=== PATIENT | male | born 1965 | race Caucasian/White ===

== ENCOUNTER 2024-01-18 04:31 | Emergency (ER) | payer OTHER ==
[~2024-01-18] VITALS: Ht 180.3 cm; Wt 113.4 kg
[2024-01-18] MEDS: CEFTRIAXONE 1G VIAL IVPB ONE (04:51)
[2024-01-18] MEDS: DEXAMETHASONE SOD PHOSPHATE 4 MG/ML 1ML VIAL IVP ONE (04:51)
[2024-01-18] MEDS: KETOROLAC 30MG VIAL (30MG/ML) IVP ONE (04:51)
[2024-01-18] MEDS: HYDROMORPHONE 2 MG VIAL (2MG/ML) IVP ONE (04:51)
[2024-01-18 04:59] LABS: BASOPHILS # (AUTO) 0.07 K/uL (0.00-0.20); BASOPHILS % (AUTO) 0.6 % (0.0-5.0); EOSINOPHILS # (AUTO) 0.24 K/uL (0.00-0.70); EOSINOPHILS % (AUTO) 1.9 % (0.0-8.0); HEMATOCRIT 42.2 % (42-54); IMMATURE GRANULOCYTE ABSOLUTE 0.06 K/uL (0-1); LYMPHOCYTES # (AUTO) 2.9 K/uL (1.0-4.8); LYMPHOCYTES % (AUTO) 22.6 % (21.0-51.0); MEAN CORPUSCULAR HEMOGLOBIN 29.7 pg (27.0-33.0); MEAN CORPUSCULAR HGB CONC 34.1 g/dL (32.0-36.0); MONOCYTES # (AUTO) 0.9 K/uL (0.1-1.0); MONOCYTES % (AUTO) 7.2 % (3.0-13.0); NEUTROPHILS # (AUTO) 8.6 K/uL (1.8-7.7); NEUTROPHILS % (AUTO) 67.2 % (40.0-77.0); PLATELET COUNT (AUTO) 335 K/uL (130-400); RED BLOOD CELL COUNT(AUTO) 4.85 MIL/uL (4.50-6.20); RED CELL DISTRIBUTION WIDTH 12.6 % (11.0-15.5); WHITE BLOOD COUNT (AUTO) 12.7 K/uL (4.8-10.8)
[2024-01-18 05:10] LABS: CREATININE 1.1 mg/dL (0.5-1.3)
[2024-01-18 05:11] LABS: INR <= 0.93 (0.85-1.15); PROTHROMBIN TIME 10.4 SEC (9.6-11.6)
[2024-01-18 05:12] LABS: PARTIAL THROMBOPLASTIN TIME 23.4 SEC (26.3-35.5)
[2024-01-18 05:14] LABS: ALBUMIN 3.3 g/dL (3.5-5.0); BILIRUBIN,TOTAL 0.4 mg/dL (0.2-1.0); TOTAL PROTEIN, SERUM 7.7 g/dL (6.0-8.3)
[2024-01-18] MEDS ORDERED: IOHEXOL-350 50ML VIAL IV ONE (05:23)
[2024-01-18] MEDS ORDERED: INSLAN SQ (08:52)
[2024-01-18] MEDS ORDERED: INSU100C14 SQ (08:53)
[2024-01-18] MEDS: VANCOMYCIN KIT 1 GM/250 ML IV.KIT IV ONE (09:01)
[2024-01-18] MEDS: HYDROMORPHONE 1 MG INJ IVP ONE (09:55)
[2024-01-18] MEDS: UNASYN 3GM VIAL IV STA (12:12)
[2024-01-18] MEDS ORDERED: CLIN-141 PO (14:17)
[2024-01-18 14:23] VITALS: BP 135/82; PULSE 88; RESP 19; O2SAT 96
== END 2024-01-18 14:48 | disposition home or self-care (01) ==
LOC: EDH 04:31
DX: K04.7 Periapical abscess without sinus (principal); E10.9 Type 1 diabetes mellitus without complications; D69.6 Thrombocytopenia, unspecified; Z79.899 Other long term (current) drug therapy; Z98.890 Other specified postprocedural states
CPT/HCPCS: 99285; 96375; 96365; 70487; 80053; 85025; 85610; 85730; 82948 ×2; 83605; 36415; 96376; J1100; J1170 ×2; J0696; J1885; J3370; J0295; Q9967